=== PATIENT | male | born 1945 | race Caucasian/White ===

== ENCOUNTER 2019-06-11 23:13 | Emergency (ER) | payer MEDICARE, BC ==
--- NOTE | 2019-06-11 23:45 | EDM.PDOC ---
ED HPI GENERAL MEDICAL PROBLEM - General Chief Complaint: Genitourinary Problem Stated Complaint: BLADDER TROUBLE Time Seen by Provider: 06/11/19 23:30 Source of Information: Reports: Patient, Family History Limitations: Reports: No Limitations - History of Present Illness INITIAL COMMENTS - FREE TEXT/NARRATIVE: 73-year-old male went to urinate roughly 10 hours ago and was unable to pass his urine. All day he has had increased pressure and pain. He had a similar episode a year ago which resolved spontaneously after a day and a half. No new medications such as antihistamines or anticholinergics, no other symptoms such as fever or dysuria. He has had some constipation. Onset: Gradual Duration: Hour(s): (10 hours) Location: Reports: Abdomen Associated Symptoms: Denies: Confusion, Chest Pain, Cough, Fever/Chills, Headaches, Nausea/Vomiting, Shortness of Breath Lower Abdomen Pain Score (Numeric/FACES): 9 - Related Data Allergies Allergy/AdvReac Type Severity Reaction Status Date / Time No Known Allergies Allergy Verified 08/31/16 08:25 Home Meds: Home Meds Aspirin [Adult Low Dose Aspirin EC] 81 mg PO DAILY 08/29/16 [History] Hydrochlorothiazide 25 mg PO DAILY 08/29/16 [History] Propranolol [Inderal LA] 60 mg PO BID 08/29/16 [History] Simvastatin [Zocor] 20 mg PO DAILY 08/29/16 [History] Past Medical History HEENT History: Reports: Impaired Vision Cardiovascular History: Reports: High Cholesterol Gastrointestinal History: Reports: Colon Polyp Musculoskeletal History: Reports: Arthritis, Back Pain, Chronic - Past Surgical History Cardiovascular Surgical History: Reports: Carotid Endarterectomy GI Surgical History: Reports: Appendectomy Dermatological Surgical History: Reports: None Social & Family History - Family History Family Medical History: Noncontributory - Tobacco Use Smoking Status *Q: Never Smoker - Caffeine Use Caffeine Use: Reports: Coffee Caffeine Use Comment: 1-2 cups of coffee per day - Recreational Drug Use Recreational Drug Use: No ED ROS GENERAL - Review of Systems Review Of Systems: See Below Constitutional: Denies: Fever, Chills Respiratory: Denies: Shortness of Breath Cardiovascular: Denies: Chest Pain GI/Abdominal: Reports: Abdominal Pain. Denies: Nausea, Vomiting : Reports: Urgency, Urinary Retention Skin: Reports: No Symptoms ED EXAM, RENAL/ - Physical Exam Exam: See Below Exam Limited By: No Limitations General Appearance: Alert, Mild Distress Respiratory/Chest: No Respiratory Distress GI/Abdominal: Tender (Lower abdomen is very tender, firm) Course - Vital Signs Last Recorded V/S: Last Vital Signs Temp 98.1 F 06/11/19 23:15 Pulse 75 06/11/19 23:27 Resp 18 06/11/19 23:27 BP 173/89 H 06/11/19 23:27 Pulse Ox 97 06/11/19 23:27 - Orders/Labs/Meds Labs: Laboratory Tests 06/11/19 Range/Units 23:49 Urine Color Yellow (YELLOW) Urine Appearance Slightly cloudy A (CLEAR) Urine pH 6.0 (5.0-8.0) Ur Specific [place] 1.025 (1.008-1.030) Urine Protein Negative (NEGATIVE) mg/dL Urine Glucose (UA) Negative (NEGATIVE) mg/dL Urine Ketones 15 H (NEGATIVE) mg/dL Urine Occult Blood Negative (NEGATIVE) Urine Nitrite Negative (NEGATIVE) Urine Bilirubin Negative (NEGATIVE) Urine Urobilinogen 0.2 (0.2-1.0) EU/dL Ur Leukocyte Esterase Negative (NEGATIVE) Urine RBC Not seen (0-5) Urine WBC 0-5 (0-5) Ur Epithelial Cells Not seen Amorphous Sediment Many Urine Bacteria Not seen Urine Mucus Not seen - Re-Assessments/Exams Free Text/Narrative Re-Assessment/Exam: 06/11/19 23:45 Bladder scan revealed almost 700 mL urine. With the patient's permission a Valenzuela catheter was placed. 06/12/19 00:09 UA was obtained which was negative. Roughly 1000 mL of urine was released from the bladder and his symptoms resolved. Encouraged him to get a physical with his primary provider including a prostate exam. He was offered a rectal exam but declined. Departure - Departure Time of Disposition: 00:13 Disposition: Home, Self-Care 01 Clinical Impression: Acute urinary retention - Discharge Information Instructions: Acute Urinary Retention, Male, [id number] Referrals: Jean Claude Acosta MD [Primary Care Provider] - Forms: ED Department Discharge Care Plan Goals: Continue your current medications, stay hydrated, and avoid holding urine if possible. Return anytime if urinary retention recurs. See your primary provider in the next few weeks for a routine physical and discuss your recurring urinary retention.
== END 2019-06-12 00:16 | disposition home or self-care (01) ==
LOC: JP.ED 23:13
DX: R33.9 Retention of urine, unspecified (principal); E78.00 Pure hypercholesterolemia, unspecified; Z79.82 Long term (current) use of aspirin; Z79.899 Other long term (current) drug therapy
CPT/HCPCS: 51702; 51798; 81001; 99283

== ENCOUNTER 2021-07-14 09:11 | Day surgery (SDC) | payer MEDICARE, BC ==
[2021-07-14] MEDS: Sodium Chloride 0.9% 1,000 ML IV SCH (09:46)
[2021-07-14] MEDS ORDERED: Propofol 200 MG/20 ML SDV ONE ×2 (11:09)
[2021-07-14] MEDS ORDERED: fentaNYL 100 MCG/2 ML SDV ONE (11:09)
--- NOTE | 2021-07-15 09:27 | OR ---
DATE OF PROCEDURE: 07/14/2021 SURGEON: Ventura Maldonado MD PROCEDURE: Colonoscopy. FINDINGS: Normal colonoscopy. COMPLICATIONS: None. MANAGER EXCHANGE: None. ANESTHESIA: MAC. PREOPERATIVE DIAGNOSIS: Screening colonoscopy. POSTOPERATIVE DIAGNOSIS: Screening colonoscopy. RISKS: Risks, benefits, alternatives, and limitations including, but not limited to infection, bleeding, perforation, false positives and false negatives were explained to the patient and he wished to proceed. PROCEDURE IN DETAIL: The patient was placed in left lateral decubitus position. A digital rectal exam was performed without abnormality. The scope was introduced and advanced atraumatically to the ileocecal valve. A photo was taken. The scope was brought back to the ascending, transverse, descending colon and retroflexed. No evidence of old or new blood. No masses. No polyps. No diverticulosis. No abnormalities on retroflexion. Greater than 8 minutes were spent removing the scope. Prep was acceptable. Approximately 90% of the luminal surface could be seen. The patient tolerated the procedure well. Ventura Maldonado MD /[id number]
== END 2021-07-14 13:45 | disposition home or self-care (01) ==
LOC: JP.SDS 09:11
PROVIDERS: ATTEND Surgery
DX: Z12.11 Encounter for screening for malignant neoplasm of colon (principal); I10 Essential (primary) hypertension
CPT/HCPCS: J2704; J3010; J7030

== ENCOUNTER 2022-08-05 15:34 | Emergency (ER) | payer MEDICARE, BC | END 2022-08-05 18:12 | disposition home or self-care (01) | LOC: JP.ED 15:34 | DX: R33.8 Other retention of urine (principal); K59.00 Constipation, unspecified; E78.00 Pure hypercholesterolemia, unspecified; Z79.82 Long term (current) use of aspirin; Z79.899 Other long term (current) drug therapy; Z90.49 Acquired absence of other specified parts of digestive tract | CPT/HCPCS: 36415; 51702; 74176; 80048; 81001; 85025; 99284-25 ==

== ENCOUNTER 2024-07-14 08:43 | Day surgery (SDC) | payer MEDICARE ==
[2024-07-14] MEDS ORDERED: fentaNYL 100 MCG/2 ML SDV ONE ×2 (09:06→12:51)
[2024-07-14] MEDS ORDERED: Propofol 200 MG/20 ML SDV ONE (09:06)
[2024-07-14] MEDS ORDERED: Midazolam 1 MG/ML 2 ML SDV ONE (09:06)
[2024-07-14] MEDS ORDERED: Bupivacaine 0.5% 30 ML SDV ONE ×2 (09:08→09:41)
[2024-07-14 09:12] LABS: HEMATOCRIT 46.4 % (38.4-49.7); HEMOGLOBIN 16.3 g/dL (12.9-16.9); MEAN CORPUSCULAR HEMOGLOBIN 29.5 pg (31.6-35.5); MEAN CORPUSCULAR HGB CONC 35.1 g/dL (31.6-35.5); MEAN CORPUSCULAR VOLUME 84.1 fL (81.4-99.0); RED BLOOD CELL COUNT 5.52 M/uL (4.14-5.76); WHITE BLOOD CELL COUNT,WBC 9.1 K/uL (3.2-11.0)
[2024-07-14] MEDS: Nozin Nasal Sanitizer NASBOTH ONE (09:31)
[2024-07-14 09:45] LABS: ALANINE AMINOTRANSFERASE,ALT 33 U/L (12-78); ALBUMIN 3.8 g/dL (3.4-5.0); ALKALINE PHOSPHATASE 88 U/L (46-116); ANION GAP 12.8 mmol/L (5.0-14.0); ASPARTATE AMNIOTRANSFERASE,AST 22 U/L (15-37); BILIRUBIN TOTAL 0.7 mg/dL (0.2-1.0); BLOOD UREA NITROGEN,BUN 19 mg/dL (7-18); CALCIUM 9.9 mg/dL (8.5-10.1); CARBON DIOXIDE,CO2 27 mmol/L (21-32); CHLORIDE,CL 102 mmol/L (100-108); EST CRCL DRUG DOSING (CG) 63.88 mL/min; ESTIMATED GFR 78 mL/min (>60); GLUCOSE RANDOM 129 mg/dL (74-106); POTASSIUM,K 3.8 mmol/L (3.6-5.2); PROTEIN TOTAL,TP 7.8 g/dL (6.4-8.2); SODIUM,NA 138 mmol/L (140-148)
[2024-07-14] MEDS: Lactated Ringers 1,000 ML IV SCH (10:10)
[2024-07-14] MEDS: ceFAZolin 1 GM in Premix Bag 1 BAG IV ONE (11:20)
[2024-07-14] MEDS ORDERED: Ondansetron 4 MG/2 ML SDV ONE (11:55)
[2024-07-14] MEDS ORDERED: Dexamethasone 4 MG/ML SDV ONE (11:55)
[2024-07-14] MEDS: Acetaminophen/oxyCODONE 325-5 MG Tab PO PRN ×2 (14:56)
== END 2024-07-14 15:41 | disposition home or self-care (01) ==
LOC: JP.SDS 08:43
PROVIDERS: ATTEND Specialist
DX: M75.101 Unspecified rotator cuff tear or rupture of right shoulder, not specified as traumatic (principal); M19.011 Primary osteoarthritis, right shoulder; M25.811 Other specified joint disorders, right shoulder; I10 Essential (primary) hypertension; E78.5 Hyperlipidemia, unspecified
CPT/HCPCS: 01630; 29826; 29827; 36415; 80053; 85027; 93005; 93010; A9270; C1713; J0665; J0689; J1100; J2250; J2405; J2704; J3010; J7120